=== PATIENT | male | born 1990 | race African-American/Black ===

== ENCOUNTER 2016-06-13 03:44 | Emergency (ER) | payer SELFPAY ==
[~2016-06-13] VITALS: Ht 188 cm; Wt 125.0 kg
[~2016-06-13 03:44] MED LIST: AMOXICILLIN 50500 MG PO; CEPHALEXIN500 M1 PO; FLEXERIL 1010 MG/TAB PO; NO HOME MEDICATIONS; NORCO 325 MG-51 TAB PO
[2016-06-13 03:47] VITALS: TEMP 98.1
[2016-06-13] MEDS ORDERED: PREDNISONE20 MG PO (04:13)
[2016-06-13] MEDS ORDERED: AMOXICILLIN 50500 MG PO (04:13)
[2016-06-13 04:25] VITALS: BP 151/84; PULSE 79
== END 2016-06-13 04:25 | disposition home or self-care (01) ==
LOC: COL.ER 03:44
DX: K12.2 Cellulitis and abscess of mouth (principal)
CPT/HCPCS: J7512